=== PATIENT | female | born 1935 | race Caucasian/White ===

== ENCOUNTER 2017-05-12 06:25 | Inpatient (IN) | payer MEDICARE ==
[~2017-05-12] VITALS: Ht 154.9 cm; Wt 73.3 kg
--- NOTE | 2017-05-12 06:34 | NUR ---
ALERT F WITH STATED BILAT HIP AND KNEE PAIN.NO SHORTENING OR ROTATION EITHER LOWER EXT NO BRUSING NO ABRASIONS SEEN.PT TOLERATED TRANSFER TO ER STRETCHER WITHOUT PAIN OR OTHER DISCONFORT.NO PAIN WITH REMOVAL OF GARMENT OR APPLYING HOSP GOWN EITHER.CIRCKS BILAT LOWER EXT WNL
[2017-05-12] MEDS ORDERED: METOPROL TAR25 MG PO (06:45)
[2017-05-12] MEDS ORDERED: ELIQUIS5 MG PO (06:45)
[2017-05-12] MEDS ORDERED: OMEPRAZOLE10 MG PO (06:46)
[2017-05-12] MEDS ORDERED: RISPERDAL0.25 MG PO (06:47)
[2017-05-12] MEDS ORDERED: PRINIVIL5 MG PO (06:47)
[2017-05-12] MEDS ORDERED: LIPITOR20 MG PO (06:48)
[2017-05-12] MEDS ORDERED: PERCOCET 5/321 COMBO PO (06:48)
[2017-05-12] MEDS ORDERED: [UNRECOGNIZED DRUG - CODE] PO (06:49)
[2017-05-12 07:31] LABS: HEMATOCRIT 40.1 % (37.0-47.0); HEMOGLOBIN 13.5 g/dl (12.0-16.0); IMMATURE GRANULOCYTES 0.4 % (0.0-1.0); MEAN CELL VOLUME 100.3 fL CALC (80.0-100.0); MEAN CORPUSCULAR HGB 33.8 pG CALC (26.0-32.0); MEAN CORPUSCULAR HGB CONC 33.7 g/L CALC (32.0-36.0); NEUT# 7.11 thou/uL (2.00-7.15); RED CELL DISTRI WIDTH 13.1 % (11.5-15.5)
--- NOTE | 2017-05-12 07:46 | NUR ---
PT STATES THAT SHE HAS PAIN IN BOTH HIPS AND KNEES, UNABLE TO COMPLETE XRAYS DUE TO PAIN. IV ESTABLISHED WITH BLOOD DRAW, PROVIDED MEDS FOR PAIN AND NAUSEA. PT IN AF[employer] c RVR 130 RANGE, PROVIDED CARDIZEM 15 MG FOR SAME.
[2017-05-12 07:47] LABS: INTERNATIONAL NORMALIZED RATIO 1.1 RATIO (0.7-1.3); PROTHROMBIN TIME 12.1 SECONDS (9.0-12.5)
[2017-05-12 08:27] LABS: ALBUMIN 4.4 g/dL (3.2-5.0); ALKALINE PHOSPHATASE 71 u/l (38-126); ANION GAP 16 (6-22 (CALC)); BILIRUBIN, TOTAL 1.2 mg/dL (0.0-1.4); BUN 19 mg/dL (8-23); BUN/CREATININE RATIO 24 (12-20 (CALC)); CALCIUM 9.6 mg/dL (8.4-10.2); CARBON DIOXIDE 26 mmol/l (22-30); CHLORIDE 106 mmol/l (95-108); CREATININE 0.8 mg/dL (0.5-1.0); GFR > 60 ML/MIN (>=60 (CALC)); GFR FOR AFR.AMER. > 60 ML/MIN (>=60 (CALC)); GLUCOSE 96 mg/dL (82-115); POTASSIUM 4.4 mmol/l (3.5-5.1); SGOT/AST 24 u/l (9-36); SGPT/ALT 36 u/l (11-66); SODIUM 143 mmol/l (137-146); TOTAL PROTEIN 7.8 g/dL (6.3-8.2)
[2017-05-12 08:39] LABS: MYOGLOBIN 89 ng/mL (0 - 62)
--- NOTE | 2017-05-12 10:10 | NUR ---
Admission Note Report Given to: SBAR PRINTED TO FLOOR Transported by: Wheelchair X Stretcher Transported with: X Nurse Transporter X Patent IV [id number] Teacher
--- NOTE | 2017-05-12 10:20 | NUR ---
REPORT RECEIVED FROM HAIM IN ED, PT ARRIVED ON UNIT VIA STRETCHER, ALERT AND EXTREMELY ANXIOUS, DEMANDING, TALKATIVE, ORIENTED TO ROOM AND CALL VASQUEZ, WILL CONTINUE TO MONITOR.
--- NOTE | 2017-05-12 10:23 | NUR ---
PT TAKEN TO ROOM 270 WITHOUT INCIDENT, REPORT WAS TO JUN.
[2017-05-12 10:34] VITALS: BP 128/61
--- NOTE | 2017-05-12 12:57 | NUR ---
ASKING FOR MEAL AT THIS TIME AND STATING SHE IS VERY COLD AND WANTS COFFEE "NOW", EVADES ASSESSMENT QUESTIONS FREQUENTLY AND FLATLY REFUSES TO ANSWER AT TIMES STATING SHE IS JUST TIRED AND WANTS HER ANXIETY MEDICATION, MEAL OFFERED, WILL CONTINUE TO MONITOR.
[2017-05-12 16:00] VITALS: BP 115/84
--- NOTE | 2017-05-12 16:00 | NUR ---
PT ANXIOUS, AGITATED, RESTLESS, C/O YOUNG GIRLS LAUGHING AND IT MAKES HER SAD BECAUSE SHE CANNOT LAUGH, STATES SHE HAS BEEN THROUGH MANY DIFFICULT EXPERIENCES INCLUDING SPOUSE COMITTING SUICIDE AND OF CHILD, ALSO TALKS ABOUT CHILDREN EATING DIRTH IN ANOTHER COUNTRY. REPORTS HORSESHOER PRETENDS SHE DOES NOT KNOW HER WHEN THEY HAVE KNOWN EACH OTHER FOR MORE THAN 20 YEARS AND ARE CONNECTED THROUGH INTER-MARRIAGE OF FAMILY MEMBERS. REFUSES TO GIVE INFORMATION TO COMPLETE ASSESSMENT AND STATES SHE ONLY WANTS HER "PAIN MEDS AND HER XANAX". STAFF ATTEMPTS TO DISTRACT HER WITH PLEASANT THOUGHTS BUT SHE STATES SHE CANNOT BE HAPPY AND SHE CANNOT THINK OF ANYTHING POSITIVE. CHUCK CARE GIVEN FROM LARGE BLADDER INCONTINENCE TWICE, WILL CONTINUE TO MONITOR, CALL VASQUEZ IN REACH.
[2017-05-12 19:20] VITALS: BP 137/82
--- NOTE | 2017-05-12 20:06 | NUR ---
BEDSIDE REPORT RECEIVED FROM CARISA BARAHONA. PT RESTING IN BED WATCHING TV. DENIES PAIN AT THIS TIME. RESPIRATIONS EVEN AND UNLABORED. STATES THAT SHE CAME FROM AN [facility] IN [place] WHERE SHE WAS STAYING TEMPORARILY HER DAUGHER CONTROLS HER HEALTH CARE. APPEARS TO TALK CONTINUOUSLY AND HAS A HARD TIME ANSWERING QUESTIONS BY NURSE IN [id number] TYPE OF PATTERN. PLEASANT. PLAN OF CARE DISCUSSED. APPEARS SATISFIED WITH CARE AT THIS TIME. SAFETY MEASURES IN PLACE. CALL LIGHT SYSTEM REVIEWED AND IN REACH.
[2017-05-13 00:05] VITALS: BP 120/66
--- NOTE | 2017-05-13 00:18 | NUR ---
PT HAD TOTAL BEDBATH BY STAFF. ANALGESIC GIVEN FOR PAIN TO LOWER EXTREMITIES PRIOR. RESPIRATIONS EVEN AND UNLABORED. NO FURTHER REQUESTS AT THIS TIME. SAFETY MEASURES IN PLACE. CALL LIGHT WITHIN REACH.
--- NOTE | 2017-05-13 04:13 | NUR ---
PT ASLEEP AT THIS TIME. NO SIGNS OF DISTRESS NOTED. RESPIRATIONS EVEN AND UNLABORED. NO CHANGES IN ASSESSMENT NOTED. SAFETY MEASURES IN PLACE. CALL LIGHT WITHIN REACH.
[2017-05-13 04:50] VITALS: BP 119/80
--- NOTE | 2017-05-13 07:00 | NUR ---
REPORT RECIEVED FROM TOSHA PANTOJA; PT RESTING IN BED WITH EYES CLOSED; NO S/S OF DISTRESS NOTED; TELE IN PLACE; BED ALARM IN PLACE FOR PT SAFETY; WILL CONTINUE TO MONITOR
[2017-05-13 11:26] VITALS: BP 126/77
--- NOTE | 2017-05-13 11:30 | NUR ---
PT MEDICATED WITH XANAX AND BACLOFEN AT THIS TIME; PT DENIES ANY PAIN AT THIS TIME; WILL CONTINUE TO MONITOR
[2017-05-13 15:33] VITALS: BP 110/63
[2017-05-13] MEDS ORDERED: VALIUM5 MG PO (16:09)
[2017-05-13] MEDS ORDERED: BACLOFEN10 MG PO (16:09)
--- NOTE | 2017-05-13 18:30 | NUR ---
PT SCREAMING OUT IN PAIN FOR LOWER EXTREMITIES; MEDICATED WITH XANAX AND MORPHINE AT THIS TIME PER PRN ORDERS; FALL PRECAUTIONS IN PLACE AND ICE PACK GIVEN TO PT; WILL CONTINUE TO MONITOR
--- NOTE | 2017-05-13 19:00 | NUR ---
ED CALLED TO INFORM NURSE OF PT EPISODE OF TORSADES VFIB PER TELE MONITORING; PT APPEARS UNCOMFORTABLE FROM PAIN BUT ALERT AT THIS TIME; VSS; DR NGUYEN NOTIFIED OF FINDINGS AND NEW ORDERS RECIEVED; WILL CONTINUE TO MONITOR
--- NOTE | 2017-05-13 19:20 | NUR ---
EKG DONE BY RT AND SCANNED FOR DR. NGUYEN TO VIEW, PT TELE READING 120'S IN AFIB PER ER MONITORING. PT IS CALM, DENIES PAIN AT THIS TIME. WILL CONTINUE TO MONITOR.
[2017-05-13 20:54] VITALS: BP 129/69
--- NOTE | 2017-05-13 22:12 | NUR ---
PO MEDS TAKEN WITH NO PROBLEM. PT IS CALM RESPIRATIONS EVEN AND UNLABORED. ABLE TO STATE HER NAME, , AND PLACE BUT CONFUSED. DENIES PAIN.
--- NOTE | 2017-05-14 00:10 | NUR ---
INCONTINENT OF YELLOW URINE, CHUCK CARE PROVIDED BY MAIKOL MCKINNEY, BED BATH AND CLEAN LINENS ALSO PROVIDED AT THIS TIME, PT TOLERATED WELL.
[2017-05-14 01:00] VITALS: BP 111/71
[2017-05-14 04:57] VITALS: BP 95/64
--- NOTE | 2017-05-14 05:15 | NUR ---
PT RESTING IN SEMIFOWLERS WITH EYES CLOSED, RESPIRATIONS EVEN AND UNLABORED.
[2017-05-14 05:55] LABS: HEMATOCRIT 41.3 % (37.0-47.0); HEMOGLOBIN 13.4 g/dl (12.0-16.0); IMMATURE GRANULOCYTES 0.4 % (0.0-1.0); MEAN CORPUSCULAR HGB 33.4 pG CALC (26.0-32.0); MEAN CORPUSCULAR HGB CONC 32.4 g/L CALC (32.0-36.0); NEUT# 5.95 thou/uL (2.00-7.15); RED BLOOD COUNT 4.01 mill/uL (4.20-5.60); RED CELL DISTRI WIDTH 12.9 % (11.5-15.5)
[2017-05-14 06:08] LABS: ANION GAP 14 (6-22 (CALC)); BUN 24 mg/dL (8-23); BUN/CREATININE RATIO 37 (12-20 (CALC)); CALCIUM 9.4 mg/dL (8.4-10.2); CARBON DIOXIDE 27 mmol/l (22-30); CHLORIDE 104 mmol/l (95-108); CREATININE 0.7 mg/dL (0.5-1.0); GFR > 60 ML/MIN (>=60 (CALC)); GFR FOR AFR.AMER. > 60 ML/MIN (>=60 (CALC)); GLUCOSE 80 mg/dL (82-115); MAGNESIUM 2.1 mg/dL (1.6-2.3); POTASSIUM 4.6 mmol/l (3.5-5.1); SODIUM 141 mmol/l (137-146)
[2017-05-14 09:28] VITALS: BP 155/93
--- NOTE | 2017-05-14 12:31 | NUR ---
PT RESTING IN BED WITH EYES CLOSED; NO S/S OF DISTRESS NOTED; TELE IN PLACE; FALL PRECAUTIONS IN PLACE; BED ALARM ACTIVE FOR PT SAFETY; CALL LIGHT WITHIN REACH; WILL CONTINUE TO MONITOR
--- NOTE | 2017-05-14 14:20 | NUR ---
Discharge instructions given. Patient verbalizes understanding of same. Discharged in stable condition via Wheelchair to [facility] with staff. All belongings sent with pt.
== END 2017-05-14 14:20 | DRG 308 ==
LOC: ENPENDDIS → ED 06:25 → ED-I 08:37 → ED 08:53 → MS2 08:54
PROVIDERS: Emergency Medicine; ADMIT Internal Medicine; ATTEND Internal Medicine
DX: I48.91 Unspecified atrial fibrillation (principal); I50.23 Acute on chronic systolic (congestive) heart failure; I69.954 Hemiplegia and hemiparesis following unspecified cerebrovascular disease affecting left non-dominant side; I69.998 Other sequelae following unspecified cerebrovascular disease; I25.5 Ischemic cardiomyopathy; I11.0 Hypertensive heart disease with heart failure; F41.9 Anxiety disorder, unspecified; F32.9 Major depressive disorder, single episode, unspecified; E78.5 Hyperlipidemia, unspecified; M62.462 Contracture of muscle, left lower leg; M62.422 Contracture of muscle, left upper arm; M62.838 Other muscle spasm; Z79.01 Long term (current) use of anticoagulants
CPT/HCPCS: G0378

== ENCOUNTER 2017-05-19 17:43 | Emergency (ER) | payer MEDICARE ==
[~2017-05-19] VITALS: Ht 154.9 cm; Wt 88.0 kg
[~2017-05-19 17:43] MED LIST: BACLOFEN10 MG PO; ELIQUIS5 MG PO; LIPITOR20 MG PO; METOPROL TAR25 MG PO; OMEPRAZOLE10 MG PO; PERCOCET 5/321 COMBO PO; PRINIVIL5 MG PO; RISPERDAL0.25 MG PO; VALIUM5 MG PO; [UNRECOGNIZED DRUG - CODE] PO
[2017-05-19] MEDS ORDERED: ULTRAM50 M1 PO (18:41)
[2017-05-19] MEDS ORDERED: FLEXERIL PO (18:41)
[2017-05-19 20:47] VITALS: BP 142/87
== END 2017-05-19 20:49 | disposition home or self-care (01) ==
LOC: ED 17:43
DX: S40.012A Contusion of left shoulder, initial encounter (principal); S66.912A Strain of unspecified muscle, fascia and tendon at wrist and hand level, left hand, initial encounter; F41.9 Anxiety disorder, unspecified; F32.9 Major depressive disorder, single episode, unspecified; E78.5 Hyperlipidemia, unspecified; I11.0 Hypertensive heart disease with heart failure; I50.9 Heart failure, unspecified; Z86.73 Personal history of transient ischemic attack (TIA), and cerebral infarction without residual deficits; W05.0XXA Fall from non-moving wheelchair, initial encounter; Y93.9 Activity, unspecified; Y92.099 Unspecified place in other non-institutional residence as the place of occurrence of the external cause

== ENCOUNTER 2017-10-05 11:29 | Emergency (ER) | payer MEDICARE ==
[~2017-10-05] VITALS: Ht 154.9 cm; Wt 85.0 kg
[~2017-10-05 11:29] MED LIST changes: +FLEXERIL PO; +ULTRAM50 M1 PO
[2017-10-05 12:09] LABS: HEMOGLOBIN 13.6 g/dl (12.0-16.0); IMMATURE GRANULOCYTES 0.3 % (0.0-1.0); MEAN CELL VOLUME 99.8 fL CALC (80.0-100.0); MEAN CORPUSCULAR HGB 33.1 pG CALC (26.0-32.0); MEAN CORPUSCULAR HGB CONC 33.2 g/L CALC (32.0-36.0); NEUT# 6.44 thou/uL (2.00-7.15); RED BLOOD COUNT 4.11 mill/uL (4.20-5.60); RED CELL DISTRI WIDTH 13.2 % (11.5-15.5)
[2017-10-05] MEDS ORDERED: ASPIRIN81 MG PO (12:13)
[2017-10-05] MEDS ORDERED: MAGNESIUM OXID400 M2 PO (12:14)
[2017-10-05 12:27] LABS: ALKALINE PHOSPHATASE 87 u/l (38-126); ANION GAP 15 (6-22 (CALC)); BILIRUBIN, TOTAL 0.7 mg/dL (0.0-1.4); BUN 21 mg/dL (8-23); BUN/CREATININE RATIO 26 (12-20 (CALC)); CALCIUM 9.9 mg/dL (8.4-10.2); CARBON DIOXIDE 29 mmol/l (22-30); CHLORIDE 109 mmol/l (95-108); CREATININE 0.8 mg/dL (0.5-1.0); GFR > 60 ML/MIN (>=60 (CALC)); GFR FOR AFR.AMER. > 60 ML/MIN (>=60 (CALC)); GLUCOSE 92 mg/dL (82-115); POTASSIUM 4.5 mmol/l (3.5-5.1); SGOT/AST 30 u/l (9-36); SGPT/ALT 37 u/l (11-66); SODIUM 148 mmol/l (137-146); TOTAL PROTEIN 7.5 g/dL (6.3-8.2)
[2017-10-05 12:32] LABS: ACT PARTIAL THROMBO TIME 25.1 SECONDS (20.0-32.5); PROTHROMBIN TIME 11.2 SECONDS (9.0-12.5)
[2017-10-05 12:39] LABS: MYOGLOBIN 53 ng/mL (0 - 62)
[2017-10-05 13:16] VITALS: BP 136/77
== END 2017-10-05 13:54 ==
LOC: ED 11:29
PROVIDERS: Emergency Medicine
DX: G45.9 Transient cerebral ischemic attack, unspecified (principal); R47.81 Slurred speech; R53.1 Weakness; I48.91 Unspecified atrial fibrillation; I10 Essential (primary) hypertension; I50.9 Heart failure, unspecified; R94.31 Abnormal electrocardiogram [ECG] [EKG]